=== PATIENT | male | born 1960 | race Caucasian/White ===

== ENCOUNTER 2021-12-21 17:42 | Emergency (ER) | payer BC ==
[~2021-12-21] VITALS: Ht 175.3 cm; Wt 87.3 kg
[2021-12-21 17:57] VITALS: BP 121/80
[2021-12-21] MEDS ORDERED: ibuprofen tablet 400 MG TABLET PO ONE (19:40)
[2021-12-21] MEDS ORDERED: HYDR-3965 PO (19:47)
== END 2021-12-21 19:59 | disposition home or self-care (01) ==
LOC: ER 17:43
DX: S50.311A Abrasion of right elbow, initial encounter (principal); M54.2 Cervicalgia; R07.81 Pleurodynia; Z88.5 Allergy status to narcotic agent; V98.8XXA Other specified transport accidents, initial encounter; Y93.89 Activity, other specified; Y92.89 Other specified places as the place of occurrence of the external cause; Y99.8 Other external cause status
CPT/HCPCS: 71111; 72040; 99284